=== PATIENT | male | born 1930 | race Caucasian/White ===

== ENCOUNTER 2017-06-15 09:16 | Inpatient (IN) | payer MEDICARE, OTHER ==
[~2017-06-15] VITALS: Ht 180.3 cm; Wt 73.9 kg
[2017-06-15] VITALS (8 sets, daily range): BP systolic 118–178; BP diastolic 50–93
[~2017-06-15 09:16] MED LIST: albumin (human) 25% 100 ML IV solution IV ONE; aminocaproic acid 250 MG/1 ML inj. ONE; calcium chloride 100 MG/1 ML inj IV ONE; heparin 1,000 units/ml 10ml inj ONE; heparin 10,000 units/1 ML INJ ONE; magnesium sulf 1 GM/2 ML ONE; methylPREDNISolone sod. succ. 500mg inj ONE; phenylephrine 10mg/ml inj IV ONE; sodium bicarbonate (8.4%) 1 mEq/ml syringe ONE
[2017-06-15] MEDS ORDERED: LORazepam 0.5 MG tablet PO PRN (09:45)
[2017-06-15] MEDS ORDERED: diphenhydrAMINE 25mg capsule PO PRN (09:45)
[2017-06-15] MEDS ORDERED: nitroGLYCERIN 0.4mg SUBLingual tab SL PRN ×2 (09:45→16:50)
[2017-06-15 10:21] LABS: ALBUMIN 3.5 G/DL (3.4-5.0); ANION GAP 7 (8-16); BLOOD UREA NITROGEN 23 MG/DL (7-18); BUN/CREATININE RATIO 21.1 (5.4-32.0); CALCIUM 9.8 MG/DL (8.5-10.1); CHLORIDE 106 MMOL/L (99-107); CREATININE 1.09 MG/DL (0.60-1.10); GLUCOSE 91 MG/DL (70-104); POTASSIUM 4.1 MMOL/L (3.5-5.1); SODIUM 143 MMOL/L (135-145); TOTAL CARBON DIOXIDE 29.7 MMOL/L (24-32); eGFR 64 ML/MIN
[2017-06-15 11:19] LABS: BASOPHILS % (AUTO) 0.6 % (0-1); EOSINOPHILS # (AUTO) 0.3 X10'3 (0-0.9); EOSINOPHILS % (AUTO) 4.8 % (0-6); HEMATOCRIT 46.7 % (42.0-52.0); HEMOGLOBIN 15.6 g/dl (14.0-17.9); LYMPHOCYTES # (AUTO) 1.6 X10'3 (1.1-4.8); MEAN CORPUSCULAR HEMOGLOBIN 33.9 PG (27.0-31.0); MEAN CORPUSCULAR HGB CONC 33.5 % (33.0-36.5); MEAN CORPUSCULAR VOLUME 101.1 FL (78-98); MONOCYTES # (AUTO) 0.6 X10'3 (0-0.9); NEUTROPHILS # (AUTO) 4.6 X10'3 (1.8-7.7); NEUTROPHILS % (AUTO) 63.6 % (42-75); PLATELET COUNT 188 X10'3 (140-440); RED BLOOD COUNT 4.62 X10'6 (4.70-6.10); RED CELL DISTRIBUTION WIDTH 13.4 % (11.5-14.5); WHITE BLOOD COUNT 7.2 X10'3 (4.5-11.0)
[2017-06-15 11:29] LABS: PARTIAL THROMBOPLASTIN TIME 27 SECONDS (22-32); PROTHROMBIN TIME 10.7 SECONDS (9.0-12.0)
[2017-06-15] MEDS: normal saline 1000ml 1,000 ML IV SCH ×2 (11:48→20:58)
[2017-06-15] MEDS ORDERED: ASPI81TA52 PO (11:52)
[2017-06-15] MEDS ORDERED: LOSA1TAB36 PO (11:53)
[2017-06-15] MEDS ORDERED: NITR0.4T51 SL (11:54)
[2017-06-15] MEDS ORDERED: midazolam 2 mg/2 ml injection ONE (12:02)
[2017-06-15] MEDS ORDERED: iohexol 350 MG/ML 50ML vial IV ONE ×2 (12:02→12:59)
[2017-06-15] MEDS ORDERED: iohexol 350MG/ML 100ml bottle IV ONE (12:02)
[2017-06-15] MEDS ORDERED: fentaNYL/PF 50MCG/1 ML 2ML syringe ONE (12:02)
[2017-06-15] MEDS ORDERED: LIDOcaine 1%/PF (10mg/ml) 5ml vial ONE (12:02)
[2017-06-15] MEDS ORDERED: nitroGLYCERIN-Tridil 50MG/D5W 250 ML IV ONE (13:04)
[2017-06-15] MEDS ORDERED: hydrALAZINE 20mg/ml inj. IV ONE (13:09)
[2017-06-15] MEDS ORDERED: MESSAGE TO NURSING PO ONE ×4 (15:15)
[2017-06-15] MEDS ORDERED: dextrose 50%-water 50ml dispensing syringe IV PRN (15:15)
[2017-06-15] MEDS ORDERED: vancomycin/NS 1 GM ADD-VANTAGE 250 ML IV ONE (15:15)
[2017-06-15] MEDS ORDERED: HYDROcodone/acetaminophen 10/325mg tab PO PRN (15:30)
[2017-06-15] MEDS ORDERED: HYDROcodone/acetaminophen 5mg/325mg tablet PO PRN (15:30)
[2017-06-15] MEDS ORDERED: proCHLORperazine 10 MG/2 ml inj IV PRN (15:30)
[2017-06-15] MEDS ORDERED: ondansetron/PF 4mg/2ml inj IV PRN (15:30)
[2017-06-15] MEDS ORDERED: OXAZEpam 15mg capsule PO PRN (15:30)
[2017-06-15] MEDS ORDERED: insulin Lispro (HumaLOG) vial - multi-dose SQ SCH (18:00)
[2017-06-15 18:15] LABS: HEMOGLOBIN 14.3 g/dl (14.0-17.9); MEAN CORPUSCULAR HEMOGLOBIN 34.4 PG (27.0-31.0); MEAN CORPUSCULAR VOLUME 101.1 FL (78-98); MEAN PLATELET VOLUME 8.8 FL (7.4-10.4); PLATELET COUNT 178 X10'3 (140-440); RED BLOOD COUNT 4.15 X10'6 (4.70-6.10); RED CELL DISTRIBUTION WIDTH 13.5 % (11.5-14.5)
[2017-06-15 18:23] LABS: ALBUMIN 2.9 G/DL (3.4-5.0); ANION GAP 7 (8-16); BLOOD UREA NITROGEN 22 MG/DL (7-18); CHLORIDE 108 MMOL/L (99-107); GLUCOSE 98 MG/DL (70-104); INR 1.1 INR; PARTIAL THROMBOPLASTIN TIME 28 SECONDS (22-32); POTASSIUM 3.4 MMOL/L (3.5-5.1); SODIUM 144 MMOL/L (135-145); TOTAL CARBON DIOXIDE 28.9 MMOL/L (24-32); eGFR 70 ML/MIN
[2017-06-15 18:27] LABS: HEMOGLOBIN A1C 5.8 % (4.5-6.2)
[2017-06-15] MEDS ORDERED: chlorhexidine gluc 0.4% **topical ** 120ml btl. TP ONE (18:50)
[2017-06-15] MEDS ORDERED: magnesium Cl slow-release 64mg tablet PO PRN (19:35)
[2017-06-15] MEDS ORDERED: potassium Cl 20 mEq SR tablet PO PRN ×2 (19:35)
[2017-06-15] MEDS ORDERED: potassium Cl 40MEQ/NS 500ml 500 ML IV PRN ×2 (19:35)
[2017-06-15] MEDS: metoprolol tartrate 25mg tablet PO SCH (20:58)
[2017-06-15 22:09] LABS: CLARITY,URINE CLEAR (Clear); COLOR,URINE STRAW (Yellow); GLUCOSE, URINE NEGATIVE (Neg); KETONES,URINE NEGATIVE (Neg); LEUKOCYTE ESTERASE ,URINE NEGATIVE (Neg); NITRITES, URINE NEGATIVE (Neg); OCCULT BLOOD,URINE NEGATIVE (Neg); PROTEIN,URINE NEGATIVE (Neg); UROBILINOGEN,URINE 0.2 E.U/dL (0.2-1.0)
[2017-06-15 22:14] LABS: UA COLLECTION TYPE NON-SPECIFIED
[2017-06-16] VITALS (7 sets, daily range): BP systolic 128–187; BP diastolic 59–99
[2017-06-16 02:18] LABS: ALANINE AMINOTRANSFERASE 23 U/L (12-78); ALBUMIN 3.2 G/DL (3.4-5.0); ALBUMIN/GLOBULIN RATIO 0.9 (1.1-1.5); ALKALINE PHOSPHATASE 54 IU/L (46-116); ANION GAP 8 (8-16); ASPARTATE AMINO TRANSFERASE 18 U/L (10-37); BILIRUBIN,TOTAL 0.3 MG/DL (0.1-1.0); BLOOD UREA NITROGEN 24 MG/DL (7-18); BUN/CREATININE RATIO 20.9 (5.4-32.0); CHLORIDE 107 MMOL/L (99-107); CREATININE 1.15 MG/DL (0.60-1.10); GLUCOSE 93 MG/DL (70-104); POTASSIUM 4.1 MMOL/L (3.5-5.1); SODIUM 145 MMOL/L (135-145); TOTAL CARBON DIOXIDE 29.6 MMOL/L (24-32); TOTAL PROTEIN 6.9 G/DL (6.4-8.2); eGFR 60 ML/MIN
[2017-06-16 02:22] LABS: BASOPHILS % (AUTO) 0.5 % (0-1); EOSINOPHILS # (AUTO) 0.5 X10'3 (0-0.9); EOSINOPHILS % (AUTO) 5.9 % (0-6); HEMATOCRIT 44.5 % (42.0-52.0); HEMOGLOBIN 14.8 g/dl (14.0-17.9); LYMPHOCYTES # (AUTO) 1.4 X10'3 (1.1-4.8); LYMPHOCYTES % (AUTO) 17.8 % (21-51); MEAN CORPUSCULAR HEMOGLOBIN 33.2 PG (27.0-31.0); MEAN CORPUSCULAR HGB CONC 33.3 % (33.0-36.5); MEAN CORPUSCULAR VOLUME 99.9 FL (78-98); MEAN PLATELET VOLUME 9.6 FL (7.4-10.4); MONOCYTES # (AUTO) 0.8 X10'3 (0-0.9); MONOCYTES % (AUTO) 10.2 % (2-12); NEUTROPHILS # (AUTO) 5.2 X10'3 (1.8-7.7); NEUTROPHILS % (AUTO) 65.6 % (42-75); PLATELET COUNT 180 X10'3 (140-440); RED BLOOD COUNT 4.46 X10'6 (4.70-6.10); RED CELL DISTRIBUTION WIDTH 12.4 % (11.5-14.5); WHITE BLOOD COUNT 7.9 X10'3 (4.5-11.0)
[2017-06-16] MEDS: metoprolol tartrate 25mg tablet PO SCH ×2 (07:44→19:42)
[2017-06-16] MEDS: losartan 50mg tablet PO SCH (07:45)
[2017-06-16] MEDS: HYDROchlorothiazide 12.5mg capsule PO SCH (07:45)
[2017-06-16] MEDS: aspirin 81mg tablet.DR PO SCH (07:45)
[2017-06-16] MEDS ORDERED: non-formulary drug (Losartan/Hydrochlorothiazide (Losartan-Hctz 50-12.5 Mg Tab) 1 TAB) PO SCH (08:00)
[2017-06-16] MEDS ORDERED: famotidine 20mg tablet PO ONE (09:00)
[2017-06-16] MEDS ORDERED: LORazepam 2 mg/ml vial IV ONE (09:00)
[2017-06-16] MEDS ORDERED: MESSAGE TO NURSING PO ONE (10:00)
[2017-06-16] MEDS ORDERED: BUDE10.2 INH (13:08)
[2017-06-16] MEDS ORDERED: albuterol 2.5 MG/3 ML nebule NEB ONE (16:45)
[2017-06-16] MEDS: mupirocin 2% ointment 22GM NS SCH (19:44)
[2017-06-17] VITALS (14 sets, daily range): BP systolic 107–161; BP diastolic 38–78
[2017-06-17 06:33] LABS: MAGNESIUM 1.8 MG/DL (1.5-2.4); POTASSIUM 3.9 MMOL/L (3.5-5.1)
[2017-06-17] MEDS: metoprolol tartrate 25mg tablet PO SCH (07:46)
[2017-06-17] MEDS: aspirin 81mg tablet.DR PO SCH (07:46)
[2017-06-17] MEDS: mupirocin 2% ointment 22GM NS SCH ×3 (08:00→21:49)
[2017-06-17] MEDS: HYDROchlorothiazide 12.5mg capsule PO SCH (08:00)
[2017-06-17] MEDS: losartan 50mg tablet PO SCH (08:00)
[2017-06-17] MEDS ORDERED: papaverine 30 mg/ml 2ml inj. ONE (08:00)
[2017-06-17] MEDS ORDERED: vancomycin/NS 1 GM ADD-VANTAGE 250 ML IV ONE (13:10)
[2017-06-17] MEDS ORDERED: LORazepam 2 mg/ml vial IV ONE (14:46)
[2017-06-17] MEDS ORDERED: MIDAZolam 5mg/5ml vial ONE (15:05)
[2017-06-17] MEDS ORDERED: SUFENTANIL CITRATE 50 MCG/ML 2ml ampule IV ONE (15:05)
[2017-06-17] MEDS ORDERED: rocuronium 10mg/ml inj IV ONE ×2 (15:06)
[2017-06-17] MEDS ORDERED: protamine sulf. 10mg/ml inj. IV ONE (15:30)
[2017-06-17] MEDS ORDERED: sevoflurane 250ml liquid IH ONE (15:30)
[2017-06-17] MEDS ORDERED: propofol inj 20 ML IV ONE (16:33)
[2017-06-17] MEDS ORDERED: heparin 10,000 units/1 ML INJ IJ ONE (16:34)
[2017-06-17] MEDS ORDERED: papaverine 30 mg/ml 2ml inj. IA ONE (16:35)
[2017-06-17 16:36] LABS: ABG BASE EXCESS -1.9 mmol/L (-2.0-3.0); ABG HCO3 22.5 mmol/L (22.0-26.0); ABG OXYGEN SATURATION 99.2 % (95-98); ABG PH 7.401 (7.350-7.450); ABG PO2 452.5 mmHg (60.0-100.0); CL (ABG) 111 mmol/L (99-107); FCOHb 0.3 % (0.5-1.5); FMetHb 0.4 % (0.3-1.12); FO2Hb 98.5 % (94-100); GLUCOSE (ABG) 95 mg/dl (70-105); IONIZED CA (ABG) 1.14 mmol/L (1.03-1.32); K (ABG) 3.7 mmol/L (3.3-5.1); NA (ABG) 137 mmol/L (135-145); TOTAL HEMOGLOBIN 11.5 G/dl (14.0-18.0)
[2017-06-17 17:56] LABS: ABG BASE EXCESS -1.5 mmol/L (-2.0-3.0); ABG OXYGEN SATURATION 99.1 % (95-98); ABG PH 7.455 (7.350-7.450); ABG PO2 410.8 mmHg (60.0-100.0); CL (ABG) 110 mmol/L (99-107); FMetHb 0.5 % (0.3-1.12); FO2Hb 98.6 % (94-100); GLUCOSE (ABG) 105 mg/dl (70-105); IONIZED CA (ABG) 1.03 mmol/L (1.03-1.32); K (ABG) 5.7 mmol/L (3.3-5.1); NA (ABG) 135 mmol/L (135-145); TOTAL HEMOGLOBIN 8.1 G/dl (14.0-18.0)
[2017-06-17 18:25] LABS: ABG HCO3 VENOUS 23.3 mmol/L; ABG PCO2 VENOUS 37.1 mmHg; ABG PO2 VENOUS 54.8 mmHg; CL (ABG) 109 mmol/L (99-107); FCOHb VENOUS 0.2 %; FHHb VENOUS 10.6 %; FMetHb VENOUS 0.5 %; FO2Hb VENOUS 88.7 %; GLUCOSE (ABG) 125 mg/dl (70-105); IONIZED CA (ABG) 1.07 mmol/L (1.03-1.32); K (ABG) 4.7 mmol/L (3.3-5.1); NA (ABG) 137 mmol/L (135-145); TOTAL HEMOGLOBIN 8.6 G/dl (14.0-18.0)
[2017-06-17 18:55] LABS: ABG BASE EXCESS 1.9 mmol/L (-2.0-3.0); ABG HCO3 25.1 mmol/L (22.0-26.0); ABG OXYGEN SATURATION 98.8 % (95-98); ABG PH 7.499 (7.350-7.450); ABG PO2 371.8 mmHg (60.0-100.0); CL (ABG) 107 mmol/L (99-107); FCOHb 0.2 % (0.5-1.5); FMetHb 0.9 % (0.3-1.12); FO2Hb 97.7 % (94-100); GLUCOSE (ABG) 127 mg/dl (70-105); IONIZED CA (ABG) 1.19 mmol/L (1.03-1.32); K (ABG) 4.8 mmol/L (3.3-5.1); NA (ABG) 135 mmol/L (135-145); TOTAL HEMOGLOBIN 7.5 G/dl (14.0-18.0)
[2017-06-17 19:20] LABS: ABG BASE EXCESS VENOUS 0.7 mmol/L; ABG HCO3 VENOUS 25.3 mmol/L; ABG PCO2 VENOUS 40.2 mmHg; ABG PO2 VENOUS 44.9 mmHg; CL (ABG) 107 mmol/L (99-107); FCOHb VENOUS 0.5 %; FHHb VENOUS 17.2 %; FMetHb VENOUS 0.7 %; FO2Hb VENOUS 81.6 %; GLUCOSE (ABG) 125 mg/dl (70-105); IONIZED CA (ABG) 1.23 mmol/L (1.03-1.32); K (ABG) 4.7 mmol/L (3.3-5.1); NA (ABG) 135 mmol/L (135-145); TOTAL HEMOGLOBIN 8.2 G/dl (14.0-18.0)
[2017-06-17] MEDS ORDERED: nitroGLYCERIN-Tridil 50MG/D5W 250 ML IV PRN (20:04)
[2017-06-17] MEDS ORDERED: niCARDipine/sod cl 20mg/200ml 200 ML IV PRN (20:04)
[2017-06-17] MEDS ORDERED: DOPamine 400mg/D5W 250ml 250 ML IV PRN (20:04)
[2017-06-17] MEDS ORDERED: potassium Cl 20mEq/100mL bag 100 ML IV PRN ×2 (20:05)
[2017-06-17] MEDS ORDERED: normal saline 250ml IV soln 250 ML IV PRN (20:05)
[2017-06-17] MEDS ORDERED: magnesium 2GM in 50ml NS 50 ML IV PRN (20:05)
[2017-06-17] MEDS ORDERED: insulin regular, human inj. 100 UNITS in normal saline 100ml IV soln 100 ML IV SCH ×2 (20:05)
[2017-06-17] MEDS ORDERED: metoclopramide 5 mg/ml inj IV PRN (20:05)
[2017-06-17] MEDS ORDERED: sodium phosphate inj. 30 MMOL in dextrose 5%-water 250 ML IV PRN (20:05)
[2017-06-17] MEDS ORDERED: Neutra Phos packet PO PRN (20:05)
[2017-06-17] MEDS ORDERED: HYDROcodone/acetaminophen 10/325mg tab PO PRN (20:05)
[2017-06-17] MEDS ORDERED: magnesium 4gm in 100ml NS 100 ML IV PRN (20:05)
[2017-06-17] MEDS ORDERED: acetaminophen 325mg tablet PO PRN (20:05)
[2017-06-17] MEDS ORDERED: morphine 2 MG/ML inj. syringe IV PRN ×2 (20:05)
[2017-06-17] MEDS ORDERED: sodium phosphate inj. 15 MMOL in dextrose 5%-water 150 ML IV PRN (20:05)
[2017-06-17] MEDS ORDERED: magnesium hydroxide 30ml (MOM) UD suspension PO PRN (20:05)
[2017-06-17] MEDS ORDERED: albumin (Human) 5% 250ml 250 ML IV PRN (20:05)
[2017-06-17] MEDS ORDERED: dextrose 50%-water 50ml dispensing syringe IV PRN (20:05)
[2017-06-17 20:35] LABS: ABG BASE EXCESS -3.3 mmol/L (-2.0-3.0); ABG HCO3 19.2 mmol/L (22.0-26.0); ABG OXYGEN SATURATION 98.7 % (95-98); ABG PH (T) 7.498 (7.350-7.450); ABG PO2 (T) 299.1 mmHg (83-108); FCOHb 0.2 % (0.5-1.5); FMetHb 0.2 % (0.3-1.12); FO2Hb 98.3 % (94-100); MINUTE VOLUME 9 L/min; PATIENT TEMPERATURE 35.5; PEEP 5 cm H2O; RESPIRATORY RATE 12 b/min; RESPIRATORY RATE (OBSERVED) 12 b/min; TIDAL VOLUME 700 mL; TOTAL HEMOGLOBIN 10.3 G/dl (14.0-18.0)
[2017-06-17 20:46] LABS: BASOPHILS % (AUTO) 0 % (0-1); EOSINOPHILS # (AUTO) 0.2 X10'3 (0-0.9); HEMOGLOBIN 9.9 g/dl (14.0-17.9); LYMPHOCYTES # (AUTO) 0.9 X10'3 (1.1-4.8); LYMPHOCYTES % (AUTO) 7.9 % (21-51); MEAN CORPUSCULAR HEMOGLOBIN 34.7 PG (27.0-31.0); MEAN CORPUSCULAR HGB CONC 35.2 % (33.0-36.5); MEAN CORPUSCULAR VOLUME 98.5 FL (78-98); MEAN PLATELET VOLUME 8.7 FL (7.4-10.4); MONOCYTES # (AUTO) 0.7 X10'3 (0-0.9); MONOCYTES % (AUTO) 5.9 % (2-12); NEUTROPHILS # (AUTO) 9.6 X10'3 (1.8-7.7); NEUTROPHILS % (AUTO) 84.2 % (42-75); PLATELET COUNT 75 X10'3 (140-440); RED BLOOD COUNT 2.85 X10'6 (4.70-6.10); RED CELL DISTRIBUTION WIDTH 13.1 % (11.5-14.5); WHITE BLOOD COUNT 11.4 X10'3 (4.5-11.0)
[2017-06-17 20:55] LABS: INR 1.3 INR; PARTIAL THROMBOPLASTIN TIME 44 SECONDS (22-32); PROTHROMBIN TIME 13.7 SECONDS (9.0-12.0)
[2017-06-17 21:00] LABS: ALANINE AMINOTRANSFERASE 14 U/L (12-78); ALBUMIN 2.7 G/DL (3.4-5.0); ALBUMIN/GLOBULIN RATIO 1.5 (1.1-1.5); ALKALINE PHOSPHATASE 25 IU/L (46-116); ANION GAP 9 (8-16); ASPARTATE AMINO TRANSFERASE 35 U/L (10-37); BILIRUBIN,TOTAL 0.9 MG/DL (0.1-1.0); BLOOD UREA NITROGEN 20 MG/DL (7-18); BUN/CREATININE RATIO 24.4 (5.4-32.0); CALCIUM 8.1 MG/DL (8.5-10.1); CHLORIDE 111 MMOL/L (99-107); CREATININE 0.82 MG/DL (0.60-1.10); GLUCOSE 141 MG/DL (70-104); MAGNESIUM 3.2 MG/DL (1.5-2.4); PHOSPHORUS 2.1 MG/DL (2.3-4.5); POTASSIUM 4.6 MMOL/L (3.5-5.1); SODIUM 144 MMOL/L (135-145); TOTAL CARBON DIOXIDE 24.1 MMOL/L (24-32); TOTAL PROTEIN 4.5 G/DL (6.4-8.2); eGFR 88 ML/MIN
[2017-06-17] MEDS: insulin regular, human inj. 100 UNITS in normal saline 100ml IV soln 100 ML IV SCH ×2 (21:48)
[2017-06-17] MEDS: sodium chloride 0.45% 1,000 ML IV SCH (21:49)
[2017-06-17] MEDS: cefazolin 1gm/NS 100mL 100 ML IV SCH (23:50)
[2017-06-18] VITALS (30 sets, daily range): BP systolic 108–160; BP diastolic 36–54
[2017-06-18] MEDS ORDERED: morphine 4 MG/ML inj SYRINge ONE ×4 (00:44→04:58)
[2017-06-18 02:44] LABS: BASOPHILS % (AUTO) 0 % (0-1); EOSINOPHILS # (AUTO) 0.2 X10'3 (0-0.9); EOSINOPHILS % (AUTO) 1.3 % (0-6); HEMOGLOBIN 7.2 g/dl (14.0-17.9); LYMPHOCYTES # (AUTO) 0.7 X10'3 (1.1-4.8); LYMPHOCYTES % (AUTO) 5.7 % (21-51); MEAN CORPUSCULAR HEMOGLOBIN 34.5 PG (27.0-31.0); MEAN CORPUSCULAR HGB CONC 34.3 % (33.0-36.5); MEAN CORPUSCULAR VOLUME 100.8 FL (78-98); MEAN PLATELET VOLUME 8.9 FL (7.4-10.4); MONOCYTES # (AUTO) 0.5 X10'3 (0-0.9); MONOCYTES % (AUTO) 4.2 % (2-12); NEUTROPHILS # (AUTO) 11.2 X10'3 (1.8-7.7); NEUTROPHILS % (AUTO) 88.8 % (42-75); PLATELET COUNT 61 X10'3 (140-440); RED BLOOD COUNT 2.09 X10'6 (4.70-6.10); RED CELL DISTRIBUTION WIDTH 13.6 % (11.5-14.5); WHITE BLOOD COUNT 12.7 X10'3 (4.5-11.0)
[2017-06-18 02:48] LABS: HEMATOCRIT 21.1 % (42.0-52.0)
[2017-06-18 02:53] LABS: INR 1.2 INR; PARTIAL THROMBOPLASTIN TIME 54 SECONDS (22-32); PROTHROMBIN TIME 12.7 SECONDS (9.0-12.0)
[2017-06-18 02:58] LABS: ALANINE AMINOTRANSFERASE 15 U/L (12-78); ALBUMIN 3.2 G/DL (3.4-5.0); ALBUMIN/GLOBULIN RATIO 1.7 (1.1-1.5); ALKALINE PHOSPHATASE 25 IU/L (46-116); ANION GAP 12 (8-16); ASPARTATE AMINO TRANSFERASE 36 U/L (10-37); BLOOD UREA NITROGEN 21 MG/DL (7-18); BUN/CREATININE RATIO 20.4 (5.4-32.0); CALCIUM 8.1 MG/DL (8.5-10.1); CHLORIDE 111 MMOL/L (99-107); CREATININE 1.03 MG/DL (0.60-1.10); GLUCOSE 188 MG/DL (70-104); MAGNESIUM 2.7 MG/DL (1.5-2.4); PHOSPHORUS 2.5 MG/DL (2.3-4.5); POTASSIUM 3.6 MMOL/L (3.5-5.1); SODIUM 147 MMOL/L (135-145); TOTAL CARBON DIOXIDE 23.7 MMOL/L (24-32); TOTAL PROTEIN 5.1 G/DL (6.4-8.2); eGFR 68 ML/MIN
[2017-06-18] MEDS ORDERED: furosemide 40mg/4ml inj IV ONE (06:40)
[2017-06-18] MEDS: pantoprazole 40mg Tablet.DR PO SCH (07:30)
[2017-06-18] MEDS: aspirin 81mg tablet.DR PO SCH (08:00)
[2017-06-18] MEDS: atorvastatin 10mg tablet PO SCH (08:00)
[2017-06-18] MEDS: metoprolol tartrate 12.5mg (1/2 tablet) PO SCH ×3 (08:00→20:51)
[2017-06-18] MEDS ORDERED: aspirin 325mg tablet, delayed-release (Ecotrin) PO SCH (08:00)
[2017-06-18] MEDS: docusate sod 100mg capsule PO SCH ×3 (08:00→20:51)
[2017-06-18] MEDS: vancomycin/NS 1 GM ADD-VANTAGE 250 ML IV SCH ×2 (08:35→20:51)
[2017-06-18] MEDS: mupirocin 2% ointment 22GM NS SCH ×3 (08:50→20:51)
[2017-06-18] MEDS: cefazolin 1gm/NS 100mL 100 ML IV SCH ×2 (08:50→16:02)
[2017-06-18] MEDS: insulin Lispro (HumaLOG) vial - multi-dose SQ SCH ×3 (09:00→14:20)
[2017-06-18 12:11] LABS: ABG BASE EXCESS -4.2 mmol/L (-2.0-3.0); ABG HCO3 19.4 mmol/L (22.0-26.0); ABG OXYGEN SATURATION 95.4 % (95-98); ABG PCO2 (T) 28.7 mmHg (35.0-48.0); ABG PH (T) 7.447 (7.350-7.450); FCOHb 0.3 % (0.5-1.5); FMetHb 0.1 % (0.3-1.12); MINUTE VOLUME 6 L/min; PATIENT TEMPERATURE 36.6; PEEP 5 cm H2O; TOTAL HEMOGLOBIN 6.9 G/dl (14.0-18.0)
[2017-06-18 12:41] LABS: ALANINE AMINOTRANSFERASE 16 U/L (12-78); ALBUMIN 3.1 G/DL (3.4-5.0); ALBUMIN/GLOBULIN RATIO 1.5 (1.1-1.5); ALKALINE PHOSPHATASE 24 IU/L (46-116); ANION GAP 11 (8-16); ASPARTATE AMINO TRANSFERASE 40 U/L (10-37); BILIRUBIN,TOTAL 0.4 MG/DL (0.1-1.0); BLOOD UREA NITROGEN 25 MG/DL (7-18); BUN/CREATININE RATIO 22.1 (5.4-32.0); CALCIUM 7.9 MG/DL (8.5-10.1); CHLORIDE 113 MMOL/L (99-107); CREATININE 1.13 MG/DL (0.60-1.10); GLUCOSE 83 MG/DL (70-104); MAGNESIUM 2.5 MG/DL (1.5-2.4); PHOSPHORUS 3.1 MG/DL (2.3-4.5); POTASSIUM 3.9 MMOL/L (3.5-5.1); SODIUM 146 MMOL/L (135-145); TOTAL PROTEIN 5.2 G/DL (6.4-8.2); eGFR 61 ML/MIN
[2017-06-18] MEDS: potassium Cl 20mEq/100mL bag 100 ML IV PRN (14:26)
[2017-06-18] MEDS: insulin regular, human inj. 100 UNITS in normal saline 100ml IV soln 100 ML IV SCH ×6 (15:15→19:36)
[2017-06-18] MEDS ORDERED: albuterol 2.5 MG/3 ML nebule NEB PRN (16:20)
[2017-06-18] MEDS ORDERED: amiodarone 150mg/dext, iso-os 100 ML IV ONE (23:50)
[2017-06-19] VITALS (23 sets, daily range): BP systolic 109–167; BP diastolic 37–66
[2017-06-19] MEDS ORDERED: amiodarone 150mg/dext, iso-os 100 ML IV ONE (00:02)
[2017-06-19] MEDS: cefazolin 1gm/NS 100mL 100 ML IV SCH ×2 (00:14→08:03)
[2017-06-19] MEDS: amiodarone/D5 360MG/200ML BAG 200 ML IV SCH ×2 (00:15→11:43)
[2017-06-19 02:50] LABS: BASOPHILS % (AUTO) 0 % (0-1); EOSINOPHILS % (AUTO) 0 % (0-6); LYMPHOCYTES # (AUTO) 0.9 X10'3 (1.1-4.8); LYMPHOCYTES % (AUTO) 4.8 % (21-51); MEAN CORPUSCULAR HEMOGLOBIN 34.5 PG (27.0-31.0); MEAN CORPUSCULAR HGB CONC 34.5 % (33.0-36.5); MEAN PLATELET VOLUME 9.6 FL (7.4-10.4); MONOCYTES # (AUTO) 1.5 X10'3 (0-0.9); MONOCYTES % (AUTO) 7.9 % (2-12); NEUTROPHILS # (AUTO) 16.4 X10'3 (1.8-7.7); NEUTROPHILS % (AUTO) 87.3 % (42-75); PLATELET COUNT 69 X10'3 (140-440); RED BLOOD COUNT 1.72 X10'6 (4.70-6.10); RED CELL DISTRIBUTION WIDTH 14.3 % (11.5-14.5); WHITE BLOOD COUNT 18.8 X10'3 (4.5-11.0)
[2017-06-19] MEDS: ondansetron/PF 4mg/2ml inj IV PRN (02:50)
[2017-06-19 03:14] LABS: HEMATOCRIT 17.2 % (42.0-52.0); HEMOGLOBIN 5.9 g/dl (14.0-17.9)
[2017-06-19 03:54] LABS: ALBUMIN 3.1 G/DL (3.4-5.0); ANION GAP 15 (8-16); BLOOD UREA NITROGEN 38 MG/DL (7-18); BUN/CREATININE RATIO 22.8 (5.4-32.0); CALCIUM 7.5 MG/DL (8.5-10.1); CHLORIDE 110 MMOL/L (99-107); CREATININE 1.67 MG/DL (0.60-1.10); GLUCOSE 190 MG/DL (70-104); MAGNESIUM 2.5 MG/DL (1.5-2.4); POTASSIUM 4.4 MMOL/L (3.5-5.1); SODIUM 145 MMOL/L (135-145); TOTAL CARBON DIOXIDE 20.5 MMOL/L (24-32); eGFR 39 ML/MIN
[2017-06-19] MEDS: potassium Cl 20mEq/100mL bag 100 ML IV PRN (05:26)
[2017-06-19] MEDS ORDERED: epoetin 20,000 units/ml inj SQ ONE (05:55)
[2017-06-19] MEDS ORDERED: glucagon, human recombinant 1mg kit SUBCUT PRN (07:45)
[2017-06-19] MEDS ORDERED: dextrose ORAL solution 15 GM/59 ML bottle PO PRN ×2 (07:45)
[2017-06-19] MEDS ORDERED: dextrose 50%-water 50ml dispensing syringe IV PRN ×2 (07:45)
[2017-06-19] MEDS: metoprolol tartrate 12.5mg (1/2 tablet) PO SCH ×2 (07:58→19:24)
[2017-06-19] MEDS: aspirin 81mg tablet.DR PO SCH (07:58)
[2017-06-19] MEDS: atorvastatin 10mg tablet PO SCH (07:58)
[2017-06-19] MEDS: docusate sod 100mg capsule PO SCH ×2 (07:58→19:23)
[2017-06-19] MEDS ORDERED: iron dextran complex inj. 25 MG in normal saline 50ml IV soln 49.5 ML IV ONE (08:00)
[2017-06-19] MEDS: HYDROcodone/acetaminophen 10/325mg tab PO PRN ×2 (08:02→14:51)
[2017-06-19] MEDS: pantoprazole 40mg Tablet.DR PO SCH (08:02)
[2017-06-19] MEDS: vancomycin/NS 1 GM ADD-VANTAGE 250 ML IV SCH (08:03)
[2017-06-19] MEDS: furosemide 40mg/4ml inj IV SCH (08:03)
[2017-06-19] MEDS: mupirocin 2% ointment 22GM NS SCH ×2 (08:05→19:23)
[2017-06-19] MEDS: insulin Lispro (HumaLOG) vial - multi-dose SQ SCH ×2 (08:31→14:53)
[2017-06-19] MEDS: iron dextran complex inj. 100 MG in normal saline 100ml IV soln 98 ML IV SCH (16:49)
[2017-06-19] MEDS: insulin glargine (Lantus) pen - multi-dose SQ SCH (20:48)
[2017-06-19] MEDS: sodium chloride 0.45% 1,000 ML IV SCH (20:49)
[2017-06-20] VITALS (24 sets, daily range): BP systolic 135–171; BP diastolic 44–92
[2017-06-20] MEDS: ondansetron/PF 4mg/2ml inj IV PRN (00:12)
[2017-06-20] MEDS: HYDROcodone/acetaminophen 10/325mg tab PO PRN (00:45)
[2017-06-20 03:19] LABS: BASOPHILS % (AUTO) 0 % (0-1); EOSINOPHILS # (AUTO) 0.2 X10'3 (0-0.9); EOSINOPHILS % (AUTO) 0.8 % (0-6); LYMPHOCYTES % (AUTO) 4.6 % (21-51); MEAN CORPUSCULAR HEMOGLOBIN 34.5 PG (27.0-31.0); MEAN CORPUSCULAR HGB CONC 34.5 % (33.0-36.5); MEAN CORPUSCULAR VOLUME 99.9 FL (78-98); MEAN PLATELET VOLUME 10.2 FL (7.4-10.4); MONOCYTES # (AUTO) 1.2 X10'3 (0-0.9); MONOCYTES % (AUTO) 6.1 % (2-12); NEUTROPHILS # (AUTO) 18.2 X10'3 (1.8-7.7); NEUTROPHILS % (AUTO) 88.5 % (42-75); PLATELET COUNT 93 X10'3 (140-440); RED BLOOD COUNT 1.76 X10'6 (4.70-6.10); RED CELL DISTRIBUTION WIDTH 14.2 % (11.5-14.5); WHITE BLOOD COUNT 20.5 X10'3 (4.5-11.0)
[2017-06-20 03:21] LABS: ALBUMIN 3.1 G/DL (3.4-5.0); ANION GAP 12 (8-16); BLOOD UREA NITROGEN 59 MG/DL (7-18); BUN/CREATININE RATIO 25.3 (5.4-32.0); CALCIUM 7.4 MG/DL (8.5-10.1); CHLORIDE 110 MMOL/L (99-107); CREATININE 2.33 MG/DL (0.60-1.10); GLUCOSE 154 MG/DL (70-104); MAGNESIUM 2.8 MG/DL (1.5-2.4); POTASSIUM 5.1 MMOL/L (3.5-5.1); SODIUM 145 MMOL/L (135-145); TOTAL CARBON DIOXIDE 22.7 MMOL/L (24-32); eGFR 27 ML/MIN
[2017-06-20 03:24] LABS: HEMATOCRIT 17.6 % (42.0-52.0); HEMOGLOBIN 6.1 g/dl (14.0-17.9)
[2017-06-20] MEDS: furosemide 40mg/4ml inj IV SCH (07:42)
[2017-06-20] MEDS: docusate sod 100mg capsule PO SCH ×2 (07:42→19:33)
[2017-06-20] MEDS: pantoprazole 40mg Tablet.DR PO SCH (07:42)
[2017-06-20] MEDS: atorvastatin 10mg tablet PO SCH (07:42)
[2017-06-20] MEDS: aspirin 81mg tablet.DR PO SCH (07:43)
[2017-06-20] MEDS: metoprolol tartrate 12.5mg (1/2 tablet) PO SCH ×2 (07:43→19:27)
[2017-06-20] MEDS: iron dextran complex inj. 100 MG in normal saline 100ml IV soln 98 ML IV SCH (10:37)
[2017-06-20] MEDS: Protein Shake (high protein) 240ml (8oz) cup PO SCH ×2 (13:00→18:17)
[2017-06-20] MEDS: sodium chloride 0.45% 1,000 ML IV SCH (19:39)
[2017-06-20] MEDS: insulin glargine (Lantus) pen - multi-dose SQ SCH (21:00)
[2017-06-21] VITALS (20 sets, daily range): BP systolic 125–194; BP diastolic 35–76
[2017-06-21 04:16] LABS: ALBUMIN 2.9 G/DL (3.4-5.0); ANION GAP 10 (8-16); BLOOD UREA NITROGEN 68 MG/DL (7-18); BUN/CREATININE RATIO 33.7 (5.4-32.0); CALCIUM 7.6 MG/DL (8.5-10.1); CHLORIDE 110 MMOL/L (99-107); CREATININE 2.02 MG/DL (0.60-1.10); GLUCOSE 125 MG/DL (70-104); PHOSPHORUS 3.9 MG/DL (2.3-4.5); SODIUM 143 MMOL/L (135-145); TOTAL CARBON DIOXIDE 23.5 MMOL/L (24-32); eGFR 31 ML/MIN
[2017-06-21 04:18] LABS: POTASSIUM 4.7 MMOL/L (3.5-5.1)
[2017-06-21] MEDS: pantoprazole 40mg Tablet.DR PO SCH (07:28)
[2017-06-21] MEDS: aspirin 81mg tablet.DR PO SCH (07:29)
[2017-06-21] MEDS: atorvastatin 10mg tablet PO SCH (07:29)
[2017-06-21] MEDS: docusate sod 100mg capsule PO SCH ×2 (07:30→21:27)
[2017-06-21] MEDS: epoetin 20,000 units/ml inj SQ SCH (08:07)
[2017-06-21] MEDS: iron dextran complex inj. 100 MG in normal saline 100ml IV soln 98 ML IV SCH (08:08)
[2017-06-21] MEDS: metoprolol tartrate 12.5mg (1/2 tablet) PO SCH ×2 (08:24→21:27)
[2017-06-21 08:27] LABS: BASOPHILS # (AUTO) 0.1 X10'3 (0-0.2); BASOPHILS % (AUTO) 0.3 % (0-1); EOSINOPHILS % (AUTO) 0 % (0-6); LYMPHOCYTES # (AUTO) 1.3 X10'3 (1.1-4.8); LYMPHOCYTES % (AUTO) 7.2 % (21-51); MEAN CORPUSCULAR HGB CONC 35.4 % (33.0-36.5); MEAN CORPUSCULAR VOLUME 98.9 FL (78-98); MEAN PLATELET VOLUME 9.3 FL (7.4-10.4); MONOCYTES # (AUTO) 1.4 X10'3 (0-0.9); MONOCYTES % (AUTO) 7.7 % (2-12); NEUTROPHILS # (AUTO) 15.9 X10'3 (1.8-7.7); NEUTROPHILS % (AUTO) 84.8 % (42-75); PLATELET COUNT 127 X10'3 (140-440); RED BLOOD COUNT 1.92 X10'6 (4.70-6.10); RED CELL DISTRIBUTION WIDTH 14.1 % (11.5-14.5); WHITE BLOOD COUNT 18.7 X10'3 (4.5-11.0)
[2017-06-21] MEDS: Protein Shake (high protein) 240ml (8oz) cup PO SCH ×3 (08:31→18:00)
[2017-06-21 08:43] LABS: HEMOGLOBIN 6.7 g/dl (14.0-17.9)
[2017-06-21] MEDS: insulin Lispro (HumaLOG) vial - multi-dose SQ SCH ×2 (09:05→13:42)
[2017-06-21 10:21] LABS: ACTIVATED CLOTTING TIME 147 SEC (101-148)
[2017-06-21 10:21] LABS: ACT @ 1.70 U 353 SEC (193-297); ACT @ 2.84 U 506 SEC (260-420); BASELINE ACT 158 SEC (101-148); PATIENT WEIGHT 76.0k KG
[2017-06-21] MEDS: HYDROcodone/acetaminophen 10/325mg tab PO PRN (11:45)
[2017-06-21] MEDS ORDERED: magnesium 4gm in 100ml NS 100 ML IV PRN (13:25)
[2017-06-21] MEDS ORDERED: potassium Cl 40MEQ/NS 500ml 500 ML IV PRN ×2 (13:25)
[2017-06-21] MEDS ORDERED: magnesium 2GM in 50ml NS 50 ML IV PRN (13:25)
[2017-06-21] MEDS ORDERED: magnesium Cl slow-release 64mg tablet PO PRN (13:25)
[2017-06-21] MEDS ORDERED: potassium Cl 20 mEq SR tablet PO PRN ×2 (13:25)
[2017-06-21] MEDS: magnesium Cl slow-release 64mg tablet PO SCH (19:58)
[2017-06-21] MEDS: potassium Cl 20 mEq SR tablet PO SCH (19:59)
[2017-06-21] MEDS: insulin glargine (Lantus) pen - multi-dose SQ SCH (21:00)
[2017-06-21] MEDS ORDERED: non-formulary drug (Budesonide/Formoterol Fumarate (Symbicort 160-4.5 Mcg Inhaler) 2 PUFFS INH SCH (21:00)
[2017-06-22 03:00] VITALS: BP 146/51
[2017-06-22 05:20] LABS: BASOPHILS # (AUTO) 0.1 X10'3 (0-0.2); BASOPHILS % (AUTO) 0.4 % (0-1); EOSINOPHILS % (AUTO) 0 % (0-6); HEMOGLOBIN 7.6 g/dl (14.0-17.9); LYMPHOCYTES # (AUTO) 1.6 X10'3 (1.1-4.8); MEAN CORPUSCULAR HEMOGLOBIN 34.9 PG (27.0-31.0); MEAN CORPUSCULAR HGB CONC 34.5 % (33.0-36.5); MEAN CORPUSCULAR VOLUME 101.4 FL (78-98); MEAN PLATELET VOLUME 9.3 FL (7.4-10.4); MONOCYTES # (AUTO) 1.6 X10'3 (0-0.9); MONOCYTES % (AUTO) 9.2 % (2-12); NEUTROPHILS # (AUTO) 14.3 X10'3 (1.8-7.7); NEUTROPHILS % (AUTO) 81.4 % (42-75); PLATELET COUNT 172 X10'3 (140-440); RED BLOOD COUNT 2.17 X10'6 (4.70-6.10); RED CELL DISTRIBUTION WIDTH 13.9 % (11.5-14.5); WHITE BLOOD COUNT 17.6 X10'3 (4.5-11.0)
[2017-06-22 05:38] LABS: ALBUMIN 3.2 G/DL (3.4-5.0); ANION GAP 8 (8-16); BLOOD UREA NITROGEN 62 MG/DL (7-18); BUN/CREATININE RATIO 36.9 (5.4-32.0); CHLORIDE 110 MMOL/L (99-107); CREATININE 1.68 MG/DL (0.60-1.10); GLUCOSE 122 MG/DL (70-104); MAGNESIUM 3.2 MG/DL (1.5-2.4); POTASSIUM 4.4 MMOL/L (3.5-5.1); SODIUM 144 MMOL/L (135-145); TOTAL CARBON DIOXIDE 25.9 MMOL/L (24-32); eGFR 39 ML/MIN
[2017-06-22 07:00] VITALS: BP 193/74
[2017-06-22] MEDS: pantoprazole 40mg Tablet.DR PO SCH (07:30)
[2017-06-22] MEDS: potassium Cl 20 mEq SR tablet PO SCH ×2 (08:00→20:00)
[2017-06-22] MEDS: K and/or MAG REPLACEMENT MC SCH (08:00)
[2017-06-22] MEDS: magnesium Cl slow-release 64mg tablet PO SCH ×2 (08:00→20:00)
[2017-06-22] MEDS: Protein Shake (high protein) 240ml (8oz) cup PO SCH ×3 (08:00→18:00)
[2017-06-22] MEDS: atorvastatin 10mg tablet PO SCH (08:49)
[2017-06-22] MEDS: metoprolol tartrate 12.5mg (1/2 tablet) PO SCH ×2 (08:49→19:03)
[2017-06-22] MEDS: docusate sod 100mg capsule PO SCH ×2 (08:50→19:03)
[2017-06-22] MEDS: aspirin 81mg tablet.DR PO SCH (08:50)
[2017-06-22] MEDS: insulin Lispro (HumaLOG) vial - multi-dose SQ SCH ×2 (09:18→13:32)
[2017-06-22 11:00] VITALS: BP 143/65
[2017-06-22] MEDS: iron dextran complex inj. 100 MG in normal saline 100ml IV soln 98 ML IV SCH (11:08)
[2017-06-22 15:00] VITALS: BP 147/54
[2017-06-22 19:00] VITALS: BP 198/74
[2017-06-22] MEDS: SYMBICORT IH SCH ×2 (20:53→23:50)
[2017-06-22] MEDS: insulin glargine (Lantus) pen - multi-dose SQ SCH (21:00)
[2017-06-22 23:00] VITALS: BP 167/37
[2017-06-23] VITALS (9 sets, daily range): BP systolic 146–182; BP diastolic 44–74
[2017-06-23 05:26] LABS: BASOPHILS % (AUTO) 0.3 % (0-1); EOSINOPHILS # (AUTO) 0.2 X10'3 (0-0.9); EOSINOPHILS % (AUTO) 1.2 % (0-6); LYMPHOCYTES % (AUTO) 6.9 % (21-51); MEAN CORPUSCULAR HEMOGLOBIN 34.7 PG (27.0-31.0); MEAN CORPUSCULAR HGB CONC 34.1 % (33.0-36.5); MEAN CORPUSCULAR VOLUME 101.7 FL (78-98); MEAN PLATELET VOLUME 8.5 FL (7.4-10.4); MONOCYTES # (AUTO) 1.2 X10'3 (0-0.9); MONOCYTES % (AUTO) 8.2 % (2-12); NEUTROPHILS # (AUTO) 12.5 X10'3 (1.8-7.7); NEUTROPHILS % (AUTO) 83.4 % (42-75); PLATELET COUNT 198 X10'3 (140-440); RED BLOOD COUNT 1.96 X10'6 (4.70-6.10); RED CELL DISTRIBUTION WIDTH 14.1 % (11.5-14.5)
[2017-06-23 05:36] LABS: HEMATOCRIT 19.9 % (42.0-52.0); HEMOGLOBIN 6.8 g/dl (14.0-17.9)
[2017-06-23 06:02] LABS: ALBUMIN 2.7 G/DL (3.4-5.0); ANION GAP 9 (8-16); BLOOD UREA NITROGEN 42 MG/DL (7-18); BUN/CREATININE RATIO 33.1 (5.4-32.0); CALCIUM 7.9 MG/DL (8.5-10.1); CHLORIDE 111 MMOL/L (99-107); CREATININE 1.27 MG/DL (0.60-1.10); GLUCOSE 157 MG/DL (70-104); POTASSIUM 4.1 MMOL/L (3.5-5.1); SODIUM 145 MMOL/L (135-145); TOTAL CARBON DIOXIDE 25.5 MMOL/L (24-32); eGFR 53 ML/MIN
[2017-06-23] MEDS: aspirin 81mg tablet.DR PO SCH (07:23)
[2017-06-23] MEDS: metoprolol tartrate 12.5mg (1/2 tablet) PO SCH ×2 (07:23→21:36)
[2017-06-23] MEDS: pantoprazole 40mg Tablet.DR PO SCH (07:23)
[2017-06-23] MEDS: atorvastatin 10mg tablet PO SCH (07:23)
[2017-06-23] MEDS: potassium Cl 20 mEq SR tablet PO SCH ×2 (07:27→20:00)
[2017-06-23] MEDS: Protein Shake (high protein) 240ml (8oz) cup PO SCH ×3 (07:27→18:00)
[2017-06-23] MEDS: docusate sod 100mg capsule PO SCH ×2 (07:27→21:41)
[2017-06-23] MEDS: magnesium Cl slow-release 64mg tablet PO SCH ×2 (07:28→20:00)
[2017-06-23] MEDS: K and/or MAG REPLACEMENT MC SCH (08:00)
[2017-06-23] MEDS: insulin Lispro (HumaLOG) vial - multi-dose SQ SCH ×2 (08:42→13:04)
[2017-06-23] MEDS: epoetin 20,000 units/ml inj SQ SCH (09:50)
[2017-06-23] MEDS: iron dextran complex inj. 100 MG in normal saline 100ml IV soln 98 ML IV SCH (09:50)
[2017-06-23] MEDS: furosemide 20 MG/2 ML vial IV SCH ×2 (10:11→21:36)
[2017-06-23] MEDS: losartan 25mg tablet PO SCH (10:11)
[2017-06-23] MEDS: SYMBICORT IH SCH (19:39)
[2017-06-23] MEDS: insulin glargine (Lantus) pen - multi-dose SQ SCH (21:00)
[2017-06-23] MEDS ORDERED: metoprolol tartrate 12.5mg (1/2 tablet) PO STA (23:11)
[2017-06-24] VITALS (20 sets, daily range): BP systolic 129–212; BP diastolic 46–135
[2017-06-24] MEDS ORDERED: amiodarone 150mg/dext, iso-os 100 ML IV ONE (05:35)
[2017-06-24] MEDS: amiodarone/D5 360MG/200ML BAG 200 ML IV SCH ×2 (06:00→12:15)
[2017-06-24 06:22] LABS: ALBUMIN 2.7 G/DL (3.4-5.0); ANION GAP 8 (8-16); BLOOD UREA NITROGEN 34 MG/DL (7-18); BUN/CREATININE RATIO 25.8 (5.4-32.0); CALCIUM 8.1 MG/DL (8.5-10.1); CHLORIDE 112 MMOL/L (99-107); CREATININE 1.32 MG/DL (0.60-1.10); GLUCOSE 132 MG/DL (70-104); MAGNESIUM 2.7 MG/DL (1.5-2.4); POTASSIUM 3.8 MMOL/L (3.5-5.1); SODIUM 147 MMOL/L (135-145); TOTAL CARBON DIOXIDE 27.4 MMOL/L (24-32); eGFR 51 ML/MIN
[2017-06-24 06:46] LABS: BASOPHILS % (AUTO) 0 % (0-1); EOSINOPHILS # (AUTO) 0.1 X10'3 (0-0.9); EOSINOPHILS % (AUTO) 0.4 % (0-6); HEMATOCRIT 22.2 % (42.0-52.0); HEMOGLOBIN 7.6 g/dl (14.0-17.9); LYMPHOCYTES # (AUTO) 1.3 X10'3 (1.1-4.8); LYMPHOCYTES % (AUTO) 9.2 % (21-51); MEAN CORPUSCULAR HEMOGLOBIN 35.3 PG (27.0-31.0); MEAN CORPUSCULAR HGB CONC 34.4 % (33.0-36.5); MEAN CORPUSCULAR VOLUME 102.6 FL (78-98); MEAN PLATELET VOLUME 8.5 FL (7.4-10.4); MONOCYTES # (AUTO) 1.4 X10'3 (0-0.9); MONOCYTES % (AUTO) 9.8 % (2-12); NEUTROPHILS # (AUTO) 11.3 X10'3 (1.8-7.7); NEUTROPHILS % (AUTO) 80.6 % (42-75); PLATELET COUNT 255 X10'3 (140-440); RED BLOOD COUNT 2.16 X10'6 (4.70-6.10); RED CELL DISTRIBUTION WIDTH 14.4 % (11.5-14.5)
[2017-06-24 07:30] LABS: HYPOCHROMASIA 1+; PLATELET ESTIMATE NORMAL; POLYCHROMASIA 1+
[2017-06-24] MEDS: magnesium Cl slow-release 64mg tablet PO SCH ×2 (08:00→19:47)
[2017-06-24] MEDS: Protein Shake (high protein) 240ml (8oz) cup PO SCH ×3 (08:00→17:45)
[2017-06-24] MEDS: K and/or MAG REPLACEMENT MC SCH (08:00)
[2017-06-24] MEDS: losartan 25mg tablet PO SCH ×2 (09:19→17:12)
[2017-06-24] MEDS: aspirin 81mg tablet.DR PO SCH (09:20)
[2017-06-24] MEDS: pantoprazole 40mg Tablet.DR PO SCH (09:20)
[2017-06-24] MEDS: metoprolol tartrate 12.5mg (1/2 tablet) PO SCH ×2 (09:20→19:37)
[2017-06-24] MEDS: docusate sod 100mg capsule PO SCH ×2 (09:20→19:37)
[2017-06-24] MEDS: atorvastatin 10mg tablet PO SCH (09:20)
[2017-06-24] MEDS: iron dextran complex inj. 100 MG in normal saline 100ml IV soln 98 ML IV SCH (11:11)
[2017-06-24] MEDS: furosemide 20 MG/2 ML vial IV SCH (11:12)
[2017-06-24] MEDS: potassium Cl 20 mEq SR tablet PO SCH ×2 (11:16→19:37)
[2017-06-24] MEDS: insulin Lispro (HumaLOG) vial - multi-dose SQ SCH ×2 (13:54→19:32)
[2017-06-24] MEDS: hydrALAZINE 20mg/ml inj. IV PRN (18:28)
[2017-06-24] MEDS: SYMBICORT IH SCH (21:03)
[2017-06-24] MEDS: insulin glargine (Lantus) pen - multi-dose SQ SCH (21:22)
[2017-06-25] VITALS (12 sets, daily range): BP systolic 124–200; BP diastolic 45–84
[2017-06-25] MEDS: amiodarone/D5 360MG/200ML BAG 200 ML IV SCH (00:35)
[2017-06-25] MEDS: hydrALAZINE 20mg/ml inj. IV PRN (04:54)
[2017-06-25 06:42] LABS: HEMATOCRIT 24.3 % (42.0-52.0); HEMOGLOBIN 8.3 g/dl (14.0-17.9); MEAN CORPUSCULAR HEMOGLOBIN 35.4 PG (27.0-31.0); MEAN CORPUSCULAR HGB CONC 34.2 % (33.0-36.5); MEAN CORPUSCULAR VOLUME 103.6 FL (78-98); MEAN PLATELET VOLUME 7.9 FL (7.4-10.4); PLATELET COUNT 307 X10'3 (140-440); RED BLOOD COUNT 2.34 X10'6 (4.70-6.10); RED CELL DISTRIBUTION WIDTH 14.1 % (11.5-14.5); WHITE BLOOD COUNT 16.7 X10'3 (4.5-11.0)
[2017-06-25 06:46] LABS: ALBUMIN 2.9 G/DL (3.4-5.0); ANION GAP 11 (8-16); BLOOD UREA NITROGEN 30 MG/DL (7-18); BUN/CREATININE RATIO 24.6 (5.4-32.0); CALCIUM 8.3 MG/DL (8.5-10.1); CHLORIDE 111 MMOL/L (99-107); CREATININE 1.22 MG/DL (0.60-1.10); GLUCOSE 124 MG/DL (70-104); MAGNESIUM 2.4 MG/DL (1.5-2.4); POTASSIUM 3.9 MMOL/L (3.5-5.1); SODIUM 148 MMOL/L (135-145); eGFR 56 ML/MIN
[2017-06-25] MEDS: magnesium Cl slow-release 64mg tablet PO SCH ×2 (07:02→20:00)
[2017-06-25] MEDS: K and/or MAG REPLACEMENT MC SCH (08:00)
[2017-06-25] MEDS: Protein Shake (high protein) 240ml (8oz) cup PO SCH ×3 (08:00→18:00)
[2017-06-25] MEDS: iron dextran complex inj. 100 MG in normal saline 100ml IV soln 98 ML IV SCH (09:26)
[2017-06-25] MEDS: furosemide 20 MG/2 ML vial IV SCH (09:26)
[2017-06-25] MEDS: epoetin 20,000 units/ml inj SQ SCH (09:29)
[2017-06-25] MEDS: docusate sod 100mg capsule PO SCH ×2 (09:37→20:02)
[2017-06-25] MEDS: pantoprazole 40mg Tablet.DR PO SCH (09:37)
[2017-06-25] MEDS: losartan 25mg tablet PO SCH ×3 (09:37→12:48)
[2017-06-25] MEDS: atorvastatin 10mg tablet PO SCH (09:37)
[2017-06-25] MEDS: aspirin 81mg tablet.DR PO SCH (09:37)
[2017-06-25] MEDS: potassium Cl 20 mEq SR tablet PO SCH ×2 (09:37→20:02)
[2017-06-25] MEDS: metoprolol tartrate 12.5mg (1/2 tablet) PO SCH ×2 (09:37→20:02)
[2017-06-25] MEDS: insulin Lispro (HumaLOG) vial - multi-dose SQ SCH ×3 (09:50→20:01)
[2017-06-25] MEDS: amiodarone 200mg tablet PO SCH ×2 (10:21→20:02)
[2017-06-25] MEDS: insulin glargine (Lantus) pen - multi-dose SQ SCH (21:00)
[2017-06-25] MEDS: SYMBICORT IH SCH (21:00)
[2017-06-26 03:00] VITALS: BP 170/61
[2017-06-26 06:00] VITALS: BP 181/66
[2017-06-26 07:05] LABS: ANION GAP 11 (8-16); BLOOD UREA NITROGEN 32 MG/DL (7-18); BUN/CREATININE RATIO 25.6 (5.4-32.0); CALCIUM 8.2 MG/DL (8.5-10.1); CHLORIDE 110 MMOL/L (99-107); CREATININE 1.25 MG/DL (0.60-1.10); GLUCOSE 100 MG/DL (70-104); MAGNESIUM 2.4 MG/DL (1.5-2.4); POTASSIUM 4.4 MMOL/L (3.5-5.1); SODIUM 148 MMOL/L (135-145); TOTAL CARBON DIOXIDE 26.9 MMOL/L (24-32); eGFR 54 ML/MIN
[2017-06-26] MEDS: magnesium Cl slow-release 64mg tablet PO SCH ×2 (08:00→19:49)
[2017-06-26] MEDS: K and/or MAG REPLACEMENT MC SCH (08:00)
[2017-06-26] MEDS: Protein Shake (high protein) 240ml (8oz) cup PO SCH ×3 (08:00→18:38)
[2017-06-26] MEDS ORDERED: BUDE10.2 INH (08:31)
[2017-06-26] MEDS: SYMBICORT IH SCH ×2 (08:32→20:31)
[2017-06-26] MEDS: potassium Cl 20 mEq SR tablet PO SCH ×2 (08:46→19:48)
[2017-06-26] MEDS: amiodarone 200mg tablet PO SCH ×2 (08:46→20:44)
[2017-06-26] MEDS: docusate sod 100mg capsule PO SCH ×2 (08:46→20:44)
[2017-06-26] MEDS: losartan 25mg tablet PO SCH ×2 (08:46→17:10)
[2017-06-26] MEDS: atorvastatin 10mg tablet PO SCH (08:46)
[2017-06-26] MEDS: furosemide 20 MG/2 ML vial IV SCH (08:47)
[2017-06-26] MEDS: metoprolol tartrate 12.5mg (1/2 tablet) PO SCH ×2 (08:47→20:44)
[2017-06-26] MEDS: iron dextran complex inj. 100 MG in normal saline 100ml IV soln 98 ML IV SCH (08:47)
[2017-06-26] MEDS: pantoprazole 40mg Tablet.DR PO SCH (08:51)
[2017-06-26] MEDS: aspirin 81mg tablet.DR PO SCH (08:55)
[2017-06-26 11:00] VITALS: BP 136/43
[2017-06-26 15:00] VITALS: BP 117/98
[2017-06-26 19:00] VITALS: BP 172/76
[2017-06-26] MEDS: insulin glargine (Lantus) pen - multi-dose SQ SCH (20:54)
[2017-06-26 23:00] VITALS: BP 126/36
[2017-06-27 03:00] VITALS: BP 194/78
[2017-06-27 06:00] VITALS: BP 167/53
[2017-06-27 07:12] LABS: BASOPHILS % (AUTO) 0.2 % (0-1); EOSINOPHILS # (AUTO) 0.5 X10'3 (0-0.9); EOSINOPHILS % (AUTO) 3.6 % (0-6); HEMATOCRIT 27.3 % (42.0-52.0); HEMOGLOBIN 9.3 g/dl (14.0-17.9); LYMPHOCYTES # (AUTO) 1.1 X10'3 (1.1-4.8); LYMPHOCYTES % (AUTO) 8.4 % (21-51); MEAN CORPUSCULAR HEMOGLOBIN 35.6 PG (27.0-31.0); MEAN CORPUSCULAR HGB CONC 33.9 % (33.0-36.5); MONOCYTES % (AUTO) 7.7 % (2-12); NEUTROPHILS # (AUTO) 10.4 X10'3 (1.8-7.7); NEUTROPHILS % (AUTO) 80.1 % (42-75); PLATELET COUNT 335 X10'3 (140-440); RED CELL DISTRIBUTION WIDTH 15.6 % (11.5-14.5)
[2017-06-27 07:24] LABS: ANION GAP 12 (8-16); BLOOD UREA NITROGEN 29 MG/DL (7-18); CALCIUM 8.4 MG/DL (8.5-10.1); CHLORIDE 110 MMOL/L (99-107); CREATININE 1.26 MG/DL (0.60-1.10); GLUCOSE 109 MG/DL (70-104); MAGNESIUM 2.3 MG/DL (1.5-2.4); POTASSIUM 4.2 MMOL/L (3.5-5.1); SODIUM 147 MMOL/L (135-145); eGFR 54 ML/MIN
[2017-06-27 07:42] LABS: ANISOCYTOSIS 1+; PLATELET ESTIMATE NORMAL; POLYCHROMASIA 3+
[2017-06-27 07:43] LABS: POIKILOCYTOSIS FEW
[2017-06-27] MEDS: potassium Cl 20 mEq SR tablet PO SCH ×2 (08:00→20:00)
[2017-06-27] MEDS: K and/or MAG REPLACEMENT MC SCH (08:00)
[2017-06-27] MEDS: SYMBICORT IH SCH ×2 (08:00→20:00)
[2017-06-27] MEDS: magnesium Cl slow-release 64mg tablet PO SCH ×2 (08:00→20:00)
[2017-06-27] MEDS: pantoprazole 40mg Tablet.DR PO SCH (08:42)
[2017-06-27] MEDS: aspirin 81mg tablet.DR PO SCH (08:49)
[2017-06-27] MEDS: losartan 25mg tablet PO SCH (08:49)
[2017-06-27] MEDS: docusate sod 100mg capsule PO SCH ×2 (08:49→19:53)
[2017-06-27] MEDS: amiodarone 200mg tablet PO SCH ×2 (08:49→19:53)
[2017-06-27] MEDS: metoprolol tartrate 12.5mg (1/2 tablet) PO SCH ×2 (08:50→19:53)
[2017-06-27] MEDS: atorvastatin 10mg tablet PO SCH (08:50)
[2017-06-27] MEDS: Protein Shake (high protein) 240ml (8oz) cup PO SCH ×3 (08:51→17:49)
[2017-06-27] MEDS: iron dextran complex inj. 100 MG in normal saline 100ml IV soln 98 ML IV SCH (09:43)
[2017-06-27 11:00] VITALS: BP 100/43
[2017-06-27 15:00] VITALS: BP 126/40
[2017-06-27 19:00] VITALS: BP 160/55
[2017-06-27] MEDS: diphenhydrAMINE 25mg capsule PO PRN (19:55)
[2017-06-27] MEDS: insulin glargine (Lantus) pen - multi-dose SQ SCH (21:00)
[2017-06-27 23:00] VITALS: BP 125/59
[2017-06-28] VITALS (7 sets, daily range): BP systolic 105–147; BP diastolic 33–66
[2017-06-28] MEDS: amiodarone 200mg tablet PO SCH ×3 (01:40→20:18)
[2017-06-28 07:07] LABS: ALBUMIN 2.6 G/DL (3.4-5.0); ANION GAP 8 (8-16); BLOOD UREA NITROGEN 28 MG/DL (7-18); CALCIUM 8.1 MG/DL (8.5-10.1); CHLORIDE 111 MMOL/L (99-107); CREATININE 1.22 MG/DL (0.60-1.10); GLUCOSE 102 MG/DL (70-104); MAGNESIUM 2.1 MG/DL (1.5-2.4); POTASSIUM 4.2 MMOL/L (3.5-5.1); SODIUM 145 MMOL/L (135-145); TOTAL CARBON DIOXIDE 26.3 MMOL/L (24-32); eGFR 56 ML/MIN
[2017-06-28] MEDS: K and/or MAG REPLACEMENT MC SCH (08:00)
[2017-06-28] MEDS: potassium Cl 20 mEq SR tablet PO SCH ×2 (08:11→20:00)
[2017-06-28] MEDS: pantoprazole 40mg Tablet.DR PO SCH (08:11)
[2017-06-28] MEDS: magnesium Cl slow-release 64mg tablet PO SCH ×2 (08:11→20:00)
[2017-06-28] MEDS: docusate sod 100mg capsule PO SCH ×2 (08:11→20:18)
[2017-06-28] MEDS: aspirin 81mg tablet.DR PO SCH (08:12)
[2017-06-28] MEDS: metoprolol tartrate 12.5mg (1/2 tablet) PO SCH ×2 (08:12→20:18)
[2017-06-28] MEDS: furosemide 20MG tablet PO SCH (08:12)
[2017-06-28] MEDS: atorvastatin 10mg tablet PO SCH (08:13)
[2017-06-28] MEDS: losartan 25mg tablet PO SCH (08:13)
[2017-06-28] MEDS: iron dextran complex inj. 100 MG in normal saline 100ml IV soln 98 ML IV SCH (08:14)
[2017-06-28] MEDS: SYMBICORT IH SCH (08:14)
[2017-06-28] MEDS: Protein Shake (high protein) 240ml (8oz) cup PO SCH ×3 (08:15→20:17)
[2017-06-28 08:53] LABS: BASOPHILS % (AUTO) 0.4 % (0-1); EOSINOPHILS # (AUTO) 0.6 X10'3 (0-0.9); EOSINOPHILS % (AUTO) 5.3 % (0-6); HEMATOCRIT 25.9 % (42.0-52.0); HEMOGLOBIN 8.7 g/dl (14.0-17.9); LYMPHOCYTES # (AUTO) 1.1 X10'3 (1.1-4.8); LYMPHOCYTES % (AUTO) 9.1 % (21-51); MEAN CORPUSCULAR HEMOGLOBIN 35.7 PG (27.0-31.0); MEAN CORPUSCULAR HGB CONC 33.7 % (33.0-36.5); MEAN PLATELET VOLUME 8.2 FL (7.4-10.4); NEUTROPHILS # (AUTO) 9.4 X10'3 (1.8-7.7); NEUTROPHILS % (AUTO) 77.2 % (42-75); PLATELET COUNT 329 X10'3 (140-440); RED BLOOD COUNT 2.44 X10'6 (4.70-6.10); RED CELL DISTRIBUTION WIDTH 17.3 % (11.5-14.5); WHITE BLOOD COUNT 12.2 X10'3 (4.5-11.0)
[2017-06-28] MEDS: epoetin 20,000 units/ml inj SQ SCH (10:42)
[2017-06-28] MEDS: diphenhydrAMINE 25mg capsule PO PRN (20:18)
[2017-06-28] MEDS: insulin glargine (Lantus) pen - multi-dose SQ SCH (21:00)
[2017-06-29] MEDS: SYMBICORT IH SCH ×2 (01:06→07:48)
[2017-06-29] MEDS: amiodarone 200mg tablet PO SCH ×2 (01:25→07:33)
[2017-06-29 03:00] VITALS: BP 180/45
[2017-06-29 05:30] VITALS: BP 185/69
[2017-06-29 05:46] LABS: BASOPHILS % (AUTO) 0.1 % (0-1); EOSINOPHILS # (AUTO) 0.8 X10'3 (0-0.9); EOSINOPHILS % (AUTO) 5.4 % (0-6); HEMATOCRIT 27.1 % (42.0-52.0); HEMOGLOBIN 9.2 g/dl (14.0-17.9); LYMPHOCYTES # (AUTO) 1.3 X10'3 (1.1-4.8); LYMPHOCYTES % (AUTO) 8.2 % (21-51); MEAN CORPUSCULAR HEMOGLOBIN 35.8 PG (27.0-31.0); MEAN CORPUSCULAR HGB CONC 33.8 % (33.0-36.5); MEAN CORPUSCULAR VOLUME 106.1 FL (78-98); MEAN PLATELET VOLUME 7.9 FL (7.4-10.4); MONOCYTES # (AUTO) 1.1 X10'3 (0-0.9); NEUTROPHILS # (AUTO) 12.1 X10'3 (1.8-7.7); NEUTROPHILS % (AUTO) 79.3 % (42-75); PLATELET COUNT 318 X10'3 (140-440); RED BLOOD COUNT 2.56 X10'6 (4.70-6.10); RED CELL DISTRIBUTION WIDTH 21.9 % (11.5-14.5); WHITE BLOOD COUNT 15.3 X10'3 (4.5-11.0)
[2017-06-29] MEDS: magnesium Cl slow-release 64mg tablet PO SCH (07:02)
[2017-06-29] MEDS: potassium Cl 20 mEq SR tablet PO SCH (07:02)
[2017-06-29] MEDS: pantoprazole 40mg Tablet.DR PO SCH (07:33)
[2017-06-29] MEDS: losartan 25mg tablet PO SCH (07:34)
[2017-06-29] MEDS: aspirin 81mg tablet.DR PO SCH (07:34)
[2017-06-29] MEDS: furosemide 20MG tablet PO SCH (07:35)
[2017-06-29] MEDS: docusate sod 100mg capsule PO SCH (07:35)
[2017-06-29] MEDS: atorvastatin 10mg tablet PO SCH (07:35)
[2017-06-29] MEDS: metoprolol tartrate 12.5mg (1/2 tablet) PO SCH (07:36)
[2017-06-29] MEDS: Protein Shake (high protein) 240ml (8oz) cup PO SCH (07:36)
[2017-06-29] MEDS: iron dextran complex inj. 100 MG in normal saline 100ml IV soln 98 ML IV SCH (07:37)
[2017-06-29] MEDS: K and/or MAG REPLACEMENT MC SCH (08:00)
[2017-06-29 10:58] VITALS: BP 168/52
== END 2017-06-29 11:52 | DRG 234 ==
LOC: SSTAY O 09:16 → PCU 3S 17:35 → ICU 2S 06-17 14:06 → PCU 3S 06-17 14:08 → ICU 2S 06-17 18:19 → PCU 3S 06-21 16:15
PROVIDERS: ADMIT Thoracic Surgery (Cardiothoracic Vascular Surgery); ATTEND Thoracic Surgery (Cardiothoracic Vascular Surgery)
PROC: 4A023N7 Measurement of Cardiac Sampling and Pressure, Left Heart, Percutaneous Approach (ICD-10-PCS; 2017-06-15)
PROC: B3111ZZ Fluoroscopy of Right Brachiocephalic-Subclavian Artery using Low Osmolar Contrast (ICD-10-PCS; 2017-06-15)
PROC: B2111ZZ Fluoroscopy of Multiple Coronary Arteries using Low Osmolar Contrast (ICD-10-PCS; 2017-06-15)
PROC: B2151ZZ Fluoroscopy of Left Heart using Low Osmolar Contrast (ICD-10-PCS; 2017-06-15)
PROC: B3121ZZ Fluoroscopy of Left Subclavian Artery using Low Osmolar Contrast (ICD-10-PCS; 2017-06-15)
PROC: 021209W Bypass Coronary Artery, Three Arteries from Aorta with Autologous Venous Tissue, Open Approach (ICD-10-PCS; 2017-06-17)
PROC: 06BQ4ZZ Excision of Left Saphenous Vein, Percutaneous Endoscopic Approach (ICD-10-PCS; 2017-06-17)
PROC: 5A1221Z Performance of Cardiac Output, Continuous (ICD-10-PCS; 2017-06-17)
PROC: B24BZZ4 Ultrasonography of Heart with Aorta, Transesophageal (ICD-10-PCS; 2017-06-17)
PROC: 02HV33Z Insertion of Infusion Device into Superior Vena Cava, Percutaneous Approach (ICD-10-PCS; 2017-06-17)
PROC: B548ZZA Ultrasonography of Superior Vena Cava, Guidance (ICD-10-PCS; 2017-06-17)
PROC: 02HQ32Z Insertion of Monitoring Device into Right Pulmonary Artery, Percutaneous Approach (ICD-10-PCS; 2017-06-17)
PROC: 4A133B3 Monitoring of Arterial Pressure, Pulmonary, Percutaneous Approach (ICD-10-PCS; 2017-06-17)
PROC: 4A1239Z Monitoring of Cardiac Output, Percutaneous Approach (ICD-10-PCS; 2017-06-17)
PROC: 02100Z9 Bypass Coronary Artery, One Artery from Left Internal Mammary, Open Approach (ICD-10-PCS; principal; 2017-06-17 15:30)
PROC: 30233M1 Transfusion of Nonautologous Plasma Cryoprecipitate into Peripheral Vein, Percutaneous Approach (ICD-10-PCS; 2017-06-18)
DX: I25.119 Atherosclerotic heart disease of native coronary artery with unspecified angina pectoris (principal); D68.9 Coagulation defect, unspecified; D69.6 Thrombocytopenia, unspecified; I25.82 Chronic total occlusion of coronary artery; I48.91 Unspecified atrial fibrillation; D62 Acute posthemorrhagic anemia; I47.1 Supraventricular tachycardia; E78.00 Pure hypercholesterolemia, unspecified; I10 Essential (primary) hypertension; I35.1 Nonrheumatic aortic (valve) insufficiency; K40.90 Unilateral inguinal hernia, without obstruction or gangrene, not specified as recurrent; M19.90 Unspecified osteoarthritis, unspecified site; M48.00 Spinal stenosis, site unspecified; R94.39 Abnormal result of other cardiovascular function study; Z96.641 Presence of right artificial hip joint; I25.2 Old myocardial infarction; Z88.0 Allergy status to penicillin; Z88.2 Allergy status to sulfonamides; Z86.711 Personal history of pulmonary embolism; Z86.718 Personal history of other venous thrombosis and embolism; Z87.442 Personal history of urinary calculi; Z82.49 Family history of ischemic heart disease and other diseases of the circulatory system
CPT/HCPCS: 0232T; 93312; 93325; 93458; 36415; 36600; 70450; 71045; 71046; 80048; 80053; 81003; 82330; 82435; 82800; 82803; 82947; 82948; 83036; 83735; 84100; 84132; 84295; 85018; 85025; 85027; 85347; 85384; 85610; 85730; 86885; 86900; 86901; 87070; 93005; 93880; 93970; 94002; 94003; 94060; 94640; 94668; 94760; 97110; 97116; 97161; 97530; 99152; 99153; A4620; A6212; A6213; A6255; A6257; A6258; A6402; A6449; A7000; A7048; C1751; C1760; C1769; J0282; J0360; J0690; J0885; J1644; J1750; J1815; J1940; J2001; J2060; J2150; J2250; J2270; J2370; J2405; J2440; J2704; J2720; J2930; J3010; J3370; J3475; J3480; J3490; J7030; J7040; J7060; J7120; P9012; P9045; P9047; Q0163; Q9967